=== PATIENT | male | born 1990 | race African-American/Black ===

== ENCOUNTER 2021-08-13 09:01 | Emergency (ER) | payer SELFPAY ==
[2021-08-13 09:18] VITALS: BP 144/80; PULSE 75; TEMP 98.2; BMI 33.6
== END 2021-08-13 13:09 | disposition home or self-care (01) ==
LOC: JER 09:01
DX: K22.6 Gastro-esophageal laceration-hemorrhage syndrome (principal); J06.9 Acute upper respiratory infection, unspecified; R05.1 Acute cough; R09.81 Nasal congestion
CPT/HCPCS: 71046-TC-FY; 87804; 99284-25; C9803; U0003; U0005

== ENCOUNTER 2023-10-21 19:41 | Emergency (ER) | payer OTHER ==
[2023-10-21 20:01] VITALS: RESP 16; BMI 32.1
[2023-10-21 21:20] LABS: BASO % 1.4 % (0-2.0); EOS % 3.2 % (0-4.5); HEMOGLOBIN 15.2 GM/dL (11.7-16.9); MCH 29.9 pg (25.7-33.7); MCHC 33.8 g/dl (32.0-35.9); MEAN CELL VOLUME 88.3 fl (80-96); MEAN PLT VOLUME 8.7 fl (7.5-11.1); MONO % 9.1 % (3.8-10.2); NEUT % 56.3 % (42.8-82.8); PLATELET COUNT 224 10^3/uL (134-434); RBC 5.09 M/mm3 (4.00-5.60); RDW 13.9 % (11.9-15.9)
[2023-10-21 21:54] LABS: BLOOD UREA NITROGEN 11.3 mg/dL (7-18)
[2023-10-21 21:58] LABS: CREATININE 1.2 mg/dL (0.55-1.3)
[2023-10-21 23:10] VITALS: BP 122/58; PULSE 66; TEMP 98.1
== END 2023-10-22 01:48 | disposition home or self-care (01) ==
LOC: JER 19:41
DX: R04.2 Hemoptysis (principal); R07.89 Other chest pain; Z20.822 Contact with and (suspected) exposure to COVID-19
CPT/HCPCS: 0241U-QW; 36415; 71046-TC-FY; 71275-TC; 80048; 84484; 85025; 93005; 93010; 99285-25; Q9967